=== PATIENT | male | born 1980 | race Caucasian/White ===

== ENCOUNTER 2023-02-17 05:49 | Day surgery (SDC) | payer OTHER, SELFPAY ==
[2023-02-14 16:11] VITALS: BMI 27.8
[2023-02-17] VITALS (10 sets, daily range): BP systolic 114–158; BP diastolic 74–84; PULSE 64–96; RESP 15–18; TEMP 36.1–36.4; O2SAT 95–99
--- NOTE | 2023-02-17 06:01 | PM.HP ---
Providers/Chief Complaint Chief Complaint: K40.90 History of Present Illness Darrick Antunez is a 42 year old male with a reducible left inguinal hernia. Medications/Allergies Home Medications Medication Instructions Recorded Confirmed Last Taken Type No Known Home Medications 06/28/22 02/17/23 Unknown History Allergies Allergy/AdvReac Type Severity Reaction Status Date / Time No Known Allergies Allergy Unverified 08/14/22 14:09 PFSH Acute PFSH: Medical History Diabetes Surgical History History of placement of ear tubes Family History Other Cancer Diabetes Hypertension Social History Smoking and tobacco status: current every day smoker cigarettes Alcohol intake: current Alcohol intake frequency: holidays/special occasions only A&P Assessment and plan (1) Reducible left inguinal hernia: Plan Laparoscopic left inguinal hernia repair with mesh The risks and benefits of the procedure, including but not limited to, bleeding, infection, mesh infection requiring mesh excision antibiotic therapy and repeat surgery, damage surrounding structures, orchiectomy, conversion to an open procedure, scar, numbness, pain, and/or recurrence were explained to the patient. Patient is understanding of the risks and wishes to proceed. Attestations Medical Necessity Statement*: Home Coding Level of Care Code Acute Code for Chg Fwd Diagnoses Reducible left inguinal hernia K40.90
[2023-02-17] MEDS: sodium chloride 0.9% 1,000 ML 30 ML IV (06:14)
--- NOTE | 2023-02-17 06:32 | ANES.PREANE2 ---
Pre-Anesthetic Assessment Height/Weight: Height 1.8 m Weight 90.718 kg Temp Pulse Resp BP Pulse Ox O2 Del Method 97 F L 64 18 133/81 99 Room Air 02/17/23 06:02 02/17/23 06:02 02/17/23 06:02 02/17/23 06:02 02/17/23 06:02 02/17/23 06:06 Operation Date: 02/17/23 07:00 Proposed Procedures p lap repair left inguinal hernia repair with mesh 23815,K40.90(Left) - Kehinde Kline DO Familial anesthetic complications: none Was Beta Armando taken within 24 hours: N/A Was Clonidine taken within 24 hours: N/A Last intake: Intake Last Liquid Date 02/16/23 Last Liquid Time 23:00 Last Solid Date 02/16/23 Last Solid Time 22:00 Social No alcohol and No tobacco Exam alert, oriented x 3, clear to auscultation bilaterally and regular rate & rhythm Airway Mallampati: Class IV Dentition: full Anesthetic Plan ASA status: 2 Anesthesia: General Risk of > 500 ml blood loss (7ml/kg in children): No Medications/Allergies Home Medications Medication Instructions Recorded Confirmed Last Taken Type No Known Home Medications 06/28/22 02/17/23 Unknown History Allergies Allergy/AdvReac Type Severity Reaction Status Date / Time No Known Allergies Allergy Unverified 08/14/22 14:09 Current Medications Generic Name Dose Route Start Last Admin Trade Name Freq PRN Reason Stop Dose Admin Sodium Chloride 1,000 mls @ 30 mls/hr 02/17/23 06:00 02/17/23 06:14 Sodium Chloride 0.9% IV 02/18/23 05:59 30 mls/hr .Q24H ASAEL Administration PFSH Anesthesia Medical History Diabetes Surgical History History of placement of ear tubes Family History Other Cancer Diabetes Hypertension Social History Smoking and tobacco status: current every day smoker cigarettes Alcohol intake: current Alcohol intake frequency: holidays/special occasions only Data Anesthesia Cardiac Studies: No Data to Display
[2023-02-17] MEDS: ceFAZolin 2,000 MG in sodium chloride 0.9% (plus) 50 ML 100 MG IV (07:00)
[2023-02-17] MEDS: lidocaine-epi 2% 20 mL INJ INJECTION (07:25)
--- NOTE | 2023-02-17 07:51 | P.OP_ITS ---
Operative Report Date of procedure: February 17, 2023 Pre-op diagnosis: Left inguinal hernia Post-op diagnosis: Indirect left inguinal hernia Procedure done: Laparoscopic (TEPP) repair of left inguinal hernia with mesh Implants: Extra-large left 3D max Bard mesh Specimens removed/disposition: None Surgeon: Dr. Kehinde Kline DO Anesthesia: General Estimated blood loss (mL): 5 Complications: None apparent Brief History: This very pleasant 42-year-old gentleman who presented to my office with a left inguinal hernia. Laparoscopic repair with mesh was indicated. The risk and benefits were explained and documented. Procedure: Patient was wheeled into the operative room and placed on the OR table in a supine position. Abdomen was inspected prepped and draped in usual sterile fashion. Time-out was performed and all present were in agreement. A 15 blade scalpel was used to make 1.2 centimeter incision infraumbilically. Combination of sharp and blunt dissection was performed down to the anterior rectus sheath which was opened sharply. The dissecting balloon was then inserted into the space of Retzius and blown up. We put the camera into the port and identified that we were in the correct space. I then placed 2 5 millimeter trocars suprapubically in the midline. I then used endokitners to bluntly dissect in the space of Retzius out laterally. An indirect inguinal hernia was identified on the left. Blunt dissection was performed to dissect down the hernia sac until the vas deferens dove medially. An extra-large left inguinal mesh was then placed into the space of Retzius. The mesh was unrolled and tacked once medi ally at the pubic bone. The mesh laid out nicely over the spermatic cord. Photos were taken of the mesh laid out and the hernia sac laid underneath the mesh. I watched the hernia sac remain in place as insufflation was removed. Incisions were closed with 4-0 Monocryl in a subcuticular interrupted fashion. Skin glue was applied. Patient tolerated the procedure well.
[2023-02-17] MEDS: HYDROcodone-acetaminophen 10-325 mg Tablet 1 TAB PO (08:51)
--- NOTE | 2023-02-17 10:03 | ANE.PACU2 ---
Inpatient post-anesthesia follow up: Airway intact: Yes Vital signs: Temperature 97 F Pulse Rate 67 Respiratory Rate 18 Blood Pressure 114/78 Pulse Oximetry 97 Oxygen Delivery Me thod Room Air Oxygen Flow Rate 6 Fraction of Inspir ed Oxygen Hydration adequate: Yes Nausea and vomiting: No Pain level: 1 Mental status: Baseline
== END 2023-02-17 09:21 | disposition home or self-care (01) ==
PROVIDERS: Visit Provider Surgery
PROC: (CPT 49650; principal; 2023-02-17 07:00)
DX: K40.90 Unilateral inguinal hernia, without obstruction or gangrene, not specified as recurrent (principal); E11.9 Type 2 diabetes mellitus without complications; F17.210 Nicotine dependence, cigarettes, uncomplicated
CPT/HCPCS: 49650; 51702; J0330; J0690; J1100; J1170; J2250; J2405; J2704; J3010; J3490; J7030

== ENCOUNTER 2024-06-18 18:13 | Emergency (ER) | payer OTHER, SELFPAY ==
[2024-06-18 18:19] VITALS: BP 131/74; PULSE 67; RESP 18; TEMP 36.7; O2SAT 99; BMI 27.8
[2024-06-18 18:29] VITALS: BP 131/74; PULSE 71; O2SAT 100
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
--- NOTE | 2024-06-18 19:05 | ECG_ITS ---
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 Measurements Intervals [place] Rate: 69 P: 261 HI: 126 QRS: 58 QRSD: 129 T: 57 QT: 413 QTc: 445 Interpretive Statements ECTOPIC ATRIAL RHYTHM MODERATE INTRAVENTRICULAR CONDUCTION DELAY [110+ ms QRS DURATION] ABNORMAL RHYTHM ECG No previous ECG available for comparison Electronically Signed On 06-19-2024 15:59:17 CHILDREN'S AIDE by Mauro Carrera M.D. [email or web address]
[2024-06-18] MEDS: HYDROcodone-acetaminophen 5-325 mg Tablet 1 TAB PO (19:29)
[2024-06-18 19:31] VITALS: BP 129/77; PULSE 66; RESP 12; O2SAT 97
[2024-06-18 20:43] VITALS: BP 125/74; PULSE 70; RESP 12; O2SAT 98
[2024-06-18 21:03] VITALS: BP 125/69; PULSE 67; RESP 16; O2SAT 98
[2024-06-18] MEDS: orphenadrine 30 mg/mL Inj 2 mL 60 MG IM (21:06)
== END 2024-06-18 21:10 | disposition home or self-care (01) ==
PROVIDERS: Emergency Provider Physician Assistant; PCP Registered Nurse
DX: S16.1XXA Strain of muscle, fascia and tendon at neck level, initial encounter (principal); S20.212A Contusion of left front wall of thorax, initial encounter; V89.2XXA Person injured in unspecified motor-vehicle accident, traffic, initial encounter; E11.9 Type 2 diabetes mellitus without complications
CPT/HCPCS: 70450; 71250; 72125; 73110; 93005; 96372; 99284; J2360